=== PATIENT | female | born 1985 | race African-American/Black ===

== ENCOUNTER 2017-07-05 05:05 | Outpatient (CLI) | payer OTHER | END 2017-07-05 05:06 | disposition critical access hospital (66) | LOC: EMS 05:05 | PROVIDERS: ATTEND Surgery | DX: R68.84 Jaw pain (principal); R07.89 Other chest pain | CPT/HCPCS: A0425; A0429 ==

== ENCOUNTER 2017-07-05 05:27 | Emergency (ER) | payer OTHER ==
[2017-07-05] MEDS ORDERED: LIDOCAINE VISCOUS 2% 15 ML UDC MM STA (05:42)
[2017-07-05] MEDS ORDERED: ACETAMINOPHEN 500 MG TABLET PO STA (05:46)
[2017-07-05] MEDS ORDERED: IBUPROFEN 600 MG TABLET PO STA (05:46)
--- NOTE | 2017-07-05 05:46 | ED Physician Documentation ---
PD HPI HEENT - Stated complaint Stated Complaint: ORAL PAIN - Chief complaint Chief Complaint: General - History obtained from History obtained from: Patient, EMS - History of Present Illness Timing - onset: Today Timing - details: Gradual onset, Still present Location: Tooth, Mouth Improves: Medication Worsens: Swalllowing Associated symptoms: No: Fever Similar symptoms before: Work up / diagnostics, Treatment Recently seen: Surgery - Additional information Additional information: Patient is a 32 year old female who is presenting to the emergency department for mouth pain. patient states that she had oral surgery 4 days prior. Patient states that she has been taking ibuprofen for pain but it is no longer working. patient states that when she was brushing her teeth this morning she got a gorss taste in her mouth and the pain was severe. Patient has a follow up appointment this afternoon. Patient has not taken any medications in the last 10 hours. Review of Systems Ten Systems: 10 systems reviewed and negative Constitutional: denies: Fever Throat: reports: Dental pain / toothache Cardiac: reports: Chest pain / pressure PD PAST MEDICAL HISTORY - Past Medical History Past Medical History: Yes Cardiovascular: None Respiratory: Other Neuro: None Endocrine/Autoimmune: Other ROAD [employer]OR: None : None HEENT: None Psych: None Musculoskeletal: None Derm: None Other Past Medical History: PRE DIABETES... STRESS INDUCED CHEST PAIN.... - Past Surgical History Past Surgical History: No - Present Medications Home Medications: Ambulatory Orders Medication Instructions Recorded Confirmed Dicyclomine [Bentyl] 10 mg PO QID #10 capsule 02/01/16 Ondansetron Odt [Zofran] 4 mg TL Q6H PRN #14 tablet 02/01/16 Chlorhexidine Gluconate 15 ml MM Q6HR #1 mouthwash 07/05/17 Lidocaine HCl [Lidocaine HCl 15 ml MM Q4HR #200 ml 07/05/17 Viscous] - Allergies Allergies/Adverse Reactions: Allergies Allergy/AdvReac Type Severity Reaction Status Date / Time codeine Allergy Hives Verified 07/05/17 05:37 diphenhydramine HCl * Allergy Hives Verified 07/05/17 05:37 [From Benadryl] shellfish derived Allergy Hives Verified 07/05/17 05:37 - Social History Does the pt smoke?: No Smoking Status: Never smoker Does the pt drink ETOH?: Yes Does the pt have substance abuse?: No - Immunizations Immunizations are current?: Yes - POLST Patient has POLST: No PD ED PE NORMAL - Vitals Vital signs reviewed: Yes - General General: Alert and oriented X 3 - Neck Neck: No adenopathy - Cardiac Cardiac: RRR - Respiratory Respiratory: No respiratory distress - Derm Derm: Normal color, Warm and dry - Extremities Extremities: No deformity - Neuro Neuro: Alert and oriented X 3 Eye Opening: Spontaneous PD ED PE EXPANDED - General General: Alert, In Pain - HEENT HEENT: Dental TTP, Other (post surgical swelling and gauze in place, no drainable abscess appreciated ) Results - Vitals Vitals: Vital Signs - 24 hr 07/05/17 05:33 Temperature 36.9 C Heart Rate 68 Respiratory 18 Rate Blood Pressure 122/85 H O2 Saturation 100 Oxygen O2 Source Room air PD MEDICAL DECISION MAKING - ED course Complexity details: reviewed old records, reviewed results, re-evaluated patient , d/w patient ED course: patient was seen and examined at bedside. patient had an anaphylactic reaction to codeine so no narcotics could be given. Patient was treated with lidocaine, tylenol and ibuprofen with moderate relief. Patient stated that the chest pain is not what made her call the ambulance. She stated that the ambulance crew asked and she sometimes had it and today she had some choking and pain so she said yes. patient was hemodynamically stable and had follow up with her dentist today. patient required no further work up and was stable for discharge with outpatient follow up. Departure - Departure Disposition: 01 Home, Self Care Clinical Impression: Complication of surgery Condition: Good Instructions: Benzocaine mouth gel ointment solution or dental paste Follow-Up: primary,dentist [Other] Prescriptions: Lidocaine HCl [Lidocaine HCl Viscous] 15 ml MM Q4HR #200 ml Chlorhexidine Gluconate 15 ml MM Q6HR #1 mouthwash Comments: You have been prescribed an antibiotic rinse as well as viscous lidocaine. You should take tylenol 1000mg and ibuprofen 600mg every 6 hrs. You should follow up with your dental appointment today. you may return to the emergency department at any time for new, worsening or uncontrollable symptoms.
[2017-07-05 06:28] VITALS: BP 119/80
== END 2017-07-05 06:30 | disposition home or self-care (01) ==
LOC: EDUNIT# → ED 05:27 → SUPCPDRO 05:27 → ED 06:30
DX: L76.82 Other postprocedural complications of skin and subcutaneous tissue (principal)
CPT/HCPCS: 99283; A9270

== ENCOUNTER 2017-11-13 06:53 | Outpatient (CLI) | payer OTHER | END 2017-11-13 06:54 | disposition critical access hospital (66) | LOC: EMS 06:53 | PROVIDERS: ATTEND Surgery | DX: R07.9 Chest pain, unspecified (principal); M79.602 Pain in left arm | CPT/HCPCS: A0425; A0427 ==

== ENCOUNTER 2017-11-13 07:14 | Emergency (ER) | payer OTHER ==
[2017-11-13] MEDS ORDERED: KETOROLAC 60 MG/2 ML VIAL IVP STA (07:22)
--- NOTE | 2017-11-13 07:23 | ED Physician Documentation ---
History of Present Illness - Stated complaint Stated Complaint: CP - Additonal information Additional information: hx from pt 32 f denies preg healthy to ED for CP awakened at 630 with ant chest pain aching was 6-7/10 down to 3/10 after asa and nitro by EMS no NV SOA diaphoresis no neck back abd pain no fever cough no recent travel or leg swelling non smoker no fhx DVT PE brother had [place] age 50 no hx same Review of Systems Constitutional: denies: Fever, Chills, Sweats Cardiac: reports: Chest pain / pressure. denies: Palpitations Respiratory: denies: Dyspnea GI: denies: Abdominal Pain, Nausea, Vomiting : denies: Now EGA Musculoskeletal: denies: Extremity pain, Extremity swelling Endocrine: denies: Easy bruising / bleeding Immunocompromised: denies: Immunocompromised PD PAST MEDICAL HISTORY - Past Medical History Cardiovascular: None Respiratory: Other Neuro: None Endocrine/Autoimmune: Other [employer] MEMBER: None : None HEENT: None Psych: None Musculoskeletal: None Derm: None - Past Surgical History Past Surgical History: No - Present Medications Home Medications: Ambulatory Orders Medication Instructions Recorded Confirmed No Known Home Medications 11/13/17 11/13/17 - Allergies Allergies/Adverse Reactions: Allergies Allergy/AdvReac Type Severity Reaction Status Date / Time codeine Allergy Hives Verified 11/13/17 07:20 diphenhydramine HCl * Allergy Hives Verified 11/13/17 07:20 [From Benadryl] shellfish derived Allergy Hives Verified 11/13/17 07:20 - Social History Does the pt smoke?: No Smoking Status: Never smoker Does the pt drink ETOH?: Yes Does the pt have substance abuse?: No - Immunizations Immunizations are current?: Yes - POLST Patient has POLST: No PD ED PE NORMAL - Vitals Vital signs reviewed: Yes - Neck Neck: Supple, no meningeal sign - Cardiac Cardiac: RRR - Respiratory Respiratory: No respiratory distress, Clear bilaterally - Abdomen Abdomen: Soft, Non tender, Other (no ruq pain) - Derm Derm: Warm and dry - Extremities Extremities: No edema, No calf tenderness / cord - Neuro Neuro: Alert and oriented X 3 Results - Vitals Vitals: Vital Signs - 24 hr 11/13/17 11/13/17 07:16 09:22 Temperature 35.8 C L Heart Rate 66 50 L Respiratory 15 19 Rate Blood Pressure 104/65 130/98 H O2 Saturation 99 100 Oxygen O2 Source Room air - EKG (time done) 0723 Rate: Rate (enter#) (55) Rhythm: NSR [place]: Normal Intervals: Normal [place] QRS: Normal Ischemia: Normal ST segments - Labs Labs: Laboratory Tests 11/13/17 11/13/17 11/13/17 07:29 07:29 07:29 WBC 7.8 RBC 3.91 L Hgb 9.4 L Hct 29.9 L MCV 76.5 L MCH 24.1 L MCHC 31.5 L RDW 17.0 H Plt Count 287 MPV 7.2 L Neut # (Auto) 4.3 Lymph # (Auto) 2.7 [place] # (Auto) 0.6 Eos # (Auto) 0.3 Baso # (Auto) 0.0 Absolute Nucleated RBC 0.00 Nucleated RBC % 0.0 Sodium 139 Potassium 3.6 Chloride 107 Carbon Dioxide 25 Anion Gap 7.0 BUN 12 Creatinine 0.5 Estimated GFR (MDRD) 171 Glucose 103 H Calcium 8.5 Total Bilirubin 0.3 AST 15 ALT 10 Alkaline Phosphatase 62 Troponin I Total Protein 7.1 Albumin 3.5 Globulin 3.6 Albumin/Globulin Ratio 1.0 Lipase 23 Serum HCG, Qual NEGATIVE 11/13/17 11/13/17 07:29 09:27 WBC RBC Hgb Hct MCV MCH MCHC RDW Plt Count MPV Neut # (Auto) Lymph # (Auto) [place] # (Auto) Eos # (Auto) Baso # (Auto) Absolute Nucleated RBC Nucleated RBC % Sodium Potassium Chloride Carbon Dioxide Anion Gap BUN Creatinine Estimated GFR (MDRD) Glucose Calcium Total Bilirubin AST ALT Alkaline Phosphatase Troponin I 0.04 0.04 Total Protein Albumin Globulin Albumin/Globulin Ratio Lipase Serum HCG, Qual - Rads (name of study) CXR Radiology: See rad report (NACP nl mediastinum) PD MEDICAL DECISION MAKING - ED course ED course: 32 with no risk factors except fhx CAD - heart score 1 (if trop # 1 neg) will get 3 hr trop and dc if neg 0830 - all neg so far pt feeling better - CP down to 2/10, but has a ZHANG from EMS nitro have apap and ice pack and explained to pt will get 3 hr trop at 930 rpt trop neg too will reassure and dc - Sepsis Event Vital Signs: Vital Signs - 24 hr 11/13/17 11/13/17 07:16 09:22 Temperature 35.8 C L Heart Rate 66 50 L Respiratory 15 19 Rate Blood Pressure 104/65 130/98 H O2 Saturation 99 100 Oxygen O2 Source Room air Departure - Departure Disposition: 01 Home, Self Care Clinical Impression: Chest pain Qualifiers: Chest pain type: unspecified Qualified Code(s): R07.9 - Chest pain, unspecified Condition: Good Instructions: ED Chest Pain Atypical Unkn Cause Follow-Up: [facility] [Provider Group] Comments: All your tests were reassuring The EKG and two sets of blood tests for a heart attack were negative The xray did not show any lung problems nor an enlarged heart nor an aneursym or tear of your aorta Your history and exam do not suggest a blood clot I am not sure what did cause the pain And I am not saying nothing is wrong But given the reassuring ER work up, I do not think there is a dangerous problem at this time (not a heart attack or blood clot or aneurysm) And so I think it is safe for you to go home I suggest motrin and tylenol as needed for the pain Follow up with your doctors at [facility] if not better by tomorrow Return if worse or new symptoms develop Your blood work did show you are mildly anemic - this would not cause your pain but please follow up with your PMD for further evaluation as an outpatient Forms: Activity restrictions
[2017-11-13 07:38] LABS: BASOPHILS % (AUTO) 0.5 %; EOSINOPHILS # (AUTO) 0.3 10^3/uL (0.0-0.7); EOSINOPHILS % (AUTO) 3.5 %; HGB - HEMOGLOBIN 9.4 g/dL (12.0-16.0); LYMPHOCYTES # (AUTO) 2.7 10^3/uL (1.5-3.5); LYMPHOCYTES % (AUTO) 34.5 %; MEAN CORPUSCULAR HEMOGLOBIN 24.1 pg (27.0-31.0); MEAN CORPUSCULAR HGB CONC 31.5 g/dL (32.0-36.0); MEAN CORPUSCULAR VOLUME 76.5 fL (81.0-99.0); MEAN PLATELET VOLUME 7.2 fL (7.9-10.8); MONOCYTES # (AUTO) 0.6 10^3/uL (0.0-1.0); MONOCYTES % (AUTO) 7.1 %; NEUTROPHILS # (AUTO) 4.3 10^3/uL (1.5-6.6); NEUTROPHILS % (AUTO) 54.4 %; PLT - PLATELET COUNT 287 10^3/uL (130-450); RED BLOOD COUNT 3.91 10^6/uL (4.20-5.40); WHITE BLOOD COUNT 7.8 x10^3/uL (4.8-10.8)
[2017-11-13 07:50] LABS: ALBUMIN 3.5 g/dL (3.2-5.5); BILIRUBIN,TOTAL 0.3 mg/dL (0.2-1.0); CALCIUM 8.5 mg/dL (8.5-10.3); CREATININE 0.5 mg/dL (0.4-1.0); TOTAL PROTEIN 7.1 g/dL (6.7-8.2)
[2017-11-13 07:59] LABS: HCG,QUALITATIVE BLOOD NEGATIVE
--- NOTE | 2017-11-13 08:07 | XRAY Report ---
Reason: cp Procedure Date: 11/13/2017 Accession Number: [id number] / [id number] Procedure: XR - Chest 2 View X-Ray CPT Code: 35993 FULL RESULT: EXAM: CHEST RADIOGRAPHY EXAM DATE: 11/13/2017 07:56 AM. CLINICAL HISTORY: Cp. COMPARISON: None. TECHNIQUE: 2 views. FINDINGS: Lungs/Pleura: No focal opacities evident. No pleural effusion. No pneumothorax. Normal volumes. Mediastinum: Heart and mediastinal contours are unremarkable. Other: None. IMPRESSION: No radiographically apparent acute abnormality in the chest. Clear lungs. [facility]
[2017-11-13] MEDS ORDERED: ACETAMINOPHEN 325 MG TABLET PO STA (08:50)
[2017-11-13 10:00] VITALS: BP 139/97
== END 2017-11-13 10:51 | disposition home or self-care (01) ==
LOC: EDUNIT# → ED 07:14
DX: R07.9 Chest pain, unspecified (principal)
CPT/HCPCS: 36415; 71046; 80053; 83690; 84484; 84703; 85025; 93005; 96374; 99283; A9270